=== PATIENT | male | born 1960 | race African-American/Black ===

== ENCOUNTER 2018-02-18 20:40 | Emergency (ER) | payer BC, OTHER ==
[~2018-02-18] VITALS: Ht 170.2 cm; Wt 97.4 kg
[~2018-02-18 20:40] MED LIST: CIPRO500 MG PO; NAPROSYN500 MG PO; ZOFRAN ODT4 MG PO
[2018-02-19 00:25] VITALS: BP 125/69
== END 2018-02-19 00:26 | disposition home or self-care (01) ==
LOC: EME 20:40
PROC: 0HQGXZZ Repair Left Hand Skin, External Approach (ICD-10-PCS; principal; 2018-02-18)
DX: S61.213A Laceration without foreign body of left middle finger without damage to nail, initial encounter (principal); W25.XXXA Contact with sharp glass, initial encounter
CPT/HCPCS: 99281; 99284

== ENCOUNTER 2018-04-10 02:46 | Emergency (ER) | payer BC, OTHER ==
[~2018-04-10] VITALS: Ht 170.2 cm; Wt 91.9 kg
[2018-04-10 03:07] LABS: BASOPHIL (%) 0.3 % (0-1); EOSINOPHIL (%) 0.9 % (0-5); EOSINOPHIL COUNT 0.1 K/uL (0-0.3); IMMATURE GRANULOCYTE (%) 0.5 % (0.0-0.7); LYMPHOCYTE (%) 12.1 % (15-42); LYMPHOCYTE COUNT 1.8 K/uL (1.0-2.8); MCH 28.9 PG (29.0-34.0); MCHC 33.3 G/DL (30.0-36.0); MCV 86.7 FL (86-99); MONOCYTE (%) 7.5 % (3-12); MONOCYTE COUNT 1.1 K/uL (0-0.8); NEUTROPHIL (%) 78.7 % (45-76); NEUTROPHIL COUNT 11.8 K/uL (1.8-6.4); PLATELET COUNT 232 K/uL (156-360); RBC DIS.WIDTH-CV 12.6 % (11.8-14.6); RBC DIS.WIDTH-SD 39.6 % (39-53); RED BLOOD COUNT 5.19 M/uL (4.00-5.50)
[2018-04-10 03:15] LABS: ALBUMIN 4.4 g/dL (3.2-4.8); CHLORIDE 102 mEq/L (99-109); POTASSIUM 3.7 mEq/L (3.7-5.4); SODIUM 140 mEq/L (136-147)
[2018-04-10 03:16] LABS: MAGNESIUM 2.6 mg/dL (1.3-2.7)
[2018-04-10 03:18] LABS: GLUCOSE 102 mg/dL (70-99); TOTAL PROTEIN 8.3 g/dL (6.4-8.3)
[2018-04-10 03:20] LABS: TOTAL BILIRUBIN 0.6 mg/dL (0.0-1.0)
[2018-04-10 03:21] LABS: ALKALINE PHOSPHATASE 64 IU/L (3-129); CREATININE 1.4 mg/dL (0.6-1.3); GFR ESTIMATE (CALCULATED) > 59 mL/min/ (58.99-99999)
[2018-04-10 03:22] LABS: UREA NITROGEN (BUN) 15 mg/dL (9-23)
[2018-04-10 03:23] LABS: AST (GOT) 26 IU/L (2-34)
[2018-04-10 03:24] LABS: ALT (GPT) 30 IU/L (3-49)
[2018-04-10 03:25] LABS: LIPASE 37 U/L (1.0-51.0)
[2018-04-10 03:58] LABS: APPEARANCE SL.HAZY ((CLEAR)); BILIRUBIN NEGATIVE; BLOOD SMALL; COLOR YELLOW ((YELLOW)); GLUCOSE (STRIP) NEGATIVE; KETONES NEGATIVE; LEUKOCYTES SMALL; NITRITE NEGATIVE; PROTEIN (STRIP) NEGATIVE; SPECIFIC GRAVITY 1.026 (1.000-1.030); UROBILINOGEN 0.2 MG/DL (0.2-1.0)
[2018-04-10 04:06] LABS: BACTERIA RARE /HPF; EPITHELIAL CELLS RARE /HPF; MUCUS TRACE /LPF; RED BLOOD CELLS TNTC /HPF (0-5); UCUL ADDED? YES; WHITE BLOOD CELLS 15-20 /HPF (0-5)
[2018-04-10 05:00] VITALS: BP 118/71
[2018-04-10] MEDS ORDERED: ZOFRAN ODT4 MG PO (05:02)
[2018-04-10] MEDS ORDERED: BACTRIM,SEPT1 TABLET PO (05:02)
== END 2018-04-10 05:19 | disposition home or self-care (01) ==
LOC: EME 02:46
PROVIDERS: Emergency Medicine
DX: N39.0 Urinary tract infection, site not specified (principal); R11.2 Nausea with vomiting, unspecified; R10.32 Left lower quadrant pain; Z85.51 Personal history of malignant neoplasm of bladder; Z87.442 Personal history of urinary calculi; K21.9 Gastro-esophageal reflux disease without esophagitis; I25.2 Old myocardial infarction; Z91.041 Radiographic dye allergy status
CPT/HCPCS: 74176; 80053; 81003; 83690; 83735; 85025; 87086; 99281; 99285; J0500; J2405; J7030